=== PATIENT | female | born 2005 | race African-American/Black ===

== ENCOUNTER 2024-04-05 13:48 | Emergency (ER) | payer SELFPAY ==
[2024-04-05] MEDS ORDERED: Boostrix 0.5 ML (Tdap) VIAL (>/=7 yrs of age) ONE (16:37)
== END 2024-04-05 17:12 | disposition home or self-care (01) ==
LOC: CSHERS 13:48
DX: L02.412 Cutaneous abscess of left axilla (principal); Z23 Encounter for immunization
CPT/HCPCS: 76999; 90471; 90715

== ENCOUNTER 2024-09-08 11:11 | Emergency (ER) | payer SELFPAY ==
[2024-09-08] MEDS ORDERED: Ibuprofen 200 MG TAB ONE (12:23)
== END 2024-09-08 12:36 | disposition home or self-care (01) ==
LOC: CSHERS 11:11
DX: S63.8X1A Sprain of other part of right wrist and hand, initial encounter (principal); X50.1XXA Overexertion from prolonged static or awkward postures, initial encounter
CPT/HCPCS: 99283